=== PATIENT | male | born 1995 | race African-American/Black ===

== ENCOUNTER 2022-04-09 22:22 | Emergency (ER) | payer BC, OTHER ==
[2022-04-09 22:28] VITALS: BP 137/84; PULSE 94; RESP 18; TEMP 98.1
[2022-04-09] MEDS ORDERED: OXYMETAZOLINE 0.05% NASL SPRAY 1 SPRAY BOTTLE NASAL STA (22:33)
--- NOTE | 2022-04-09 22:33 | ED ---
ENT HPI - General Chief complaint: ENT Stated complaint: Nose Bleeds Time Seen by Provider: 04/09/22 22:32 Source: patient, RN notes reviewed, old records reviewed Mode of arrival: ambulatory Limitations: no limitations - History of Present Illness Initial comments: This is a 26-year-old male who presents today for evaluation. Patient presents today for evaluation regards to epistaxis epistaxis event prior to arrival. Symptoms resolved here in the emergency prior. No trauma noted no injuries no fever MD complaint: epistaxis -: hour(s) Location: nose Severity: mild Severity scale (1-10): 2 Consistency: intermittent, now resolved Improves with: pressure Worsens with: none Context-Epistaxis: other (0) Associated Symptoms: other (0) - Related Data Home Medications Medication Instructions Recorded Confirmed No Known Home Medications 10/21/15 10/21/15 Allergies Allergy/AdvReac Type Severity Reaction Status Date / Time No Known Allergies Allergy Verified 04/09/22 22:28 Review of Systems ROS Statement: Those systems with pertinent positive or pertinent negative responses have been documented in the HPI. ROS Other: All systems not noted in ROS Statement are negative. Past Medical History Past Medical History: No Reported History History of Any Multi-Drug Resistant Organisms: None Reported Past Surgical History: No Surgical Hx Reported Past Psychological History: No Psychological Hx Reported Smoking Status: Vaper Past Alcohol Use History: None Reported Past Drug Use History: Marijuana General Exam Limitations: no limitations General appearance: alert, in no apparent distress Head exam: Present: atraumatic, normocephalic, normal inspection Eye exam: Present: normal appearance, PERRL, EOMI. Absent: scleral icterus, conjunctival injection, periorbital swelling ENT exam: Present: normal exam, mucous membranes moist Neck exam: Present: normal inspection. Absent: tenderness, meningismus, lymphadenopathy Respiratory exam: Present: normal lung sounds bilaterally. Absent: respiratory distress, wheezes, rales, rhonchi, stridor Cardiovascular Exam: Present: regular rate, normal rhythm, normal heart sounds. Absent: systolic murmur, diastolic murmur, rubs, gallop, clicks GI/Abdominal exam: Present: soft, normal bowel sounds. Absent: distended, tenderness, guarding, rebound, rigid Extremities exam: Present: normal inspection, full ROM, normal capillary refill. Absent: tenderness, pedal edema, joint swelling, calf tenderness Back exam: Present: normal inspection Neurological exam: Present: alert, oriented X3, CN II-XII intact Psychiatric exam: Present: normal affect, normal mood Skin exam: Present: warm, dry, intact, normal color. Absent: rash Course Vital Signs 04/09/22 22:26 Temperature 98.1 F Pulse Rate 94 Respiratory 18 Rate Blood Pressure 137/84 O2 Sat by Pulse 96 Oximetry - Reevaluation(s) Reevaluation #1: 04/09/22 Medical record is reviewed Patient symptoms are improved here in the ER Patient informed of results and questions answered Medical Decision Making - Medical Decision Making 26 male DF for evaluation of a bloody nose. No acute bleeding here patient's nose. Patient has no current epistaxis, given instructions on a taking care of recurrence of bloody nose and patient can be discharged home Disposition Clinical Impression: Epistaxis Disposition: HOME SELF-CARE Condition: Good Instructions (If sedation given, give patient instructions): Nosebleed (ED) Is patient prescribed a controlled substance at d/c from ED?: No Referrals: None,Stated [Primary Care Provider] - 1-2 days Time of Disposition: 22:30
== END 2022-04-09 23:00 | disposition home or self-care (01) ==
LOC: EC 22:22
DX: R04.0 Epistaxis (principal); F17.290 Nicotine dependence, other tobacco product, uncomplicated; F12.90 Cannabis use, unspecified, uncomplicated
CPT/HCPCS: 99283